=== PATIENT | male | born 1975 | race Caucasian/White ===

== ENCOUNTER 2017-04-16 23:03 | Emergency (ER) | payer OTHER ==
[2017-04-16] MEDS ORDERED: DIPH,PERTUS(ACELL)TETVAC-LF 0.5 ML VIAL IM ONE (23:16)
[2017-04-16] MEDS ORDERED: RX INFO: IV CONTRAST WAS GIVEN 1 EACH MISC MISCELLANE PRN (23:16)
[2017-04-16 23:30] LABS: Basophils # (A) 0.1 k/uL (0-0.2); Basophils % (A) 1 %; CH 31.4; CHCM 36.3; Eosinophils # (A) 0.2 k/uL (0-0.7); Eosinophils % (A) 3 %; HCT 46.7 % (39.0-53.0); HDW 2.73; HGB 16.3 gm/dL (13.0-17.5); Luc # (Auto) 0.16; Luc % (Auto) 2; Lymphocytes # (A) 2.3 k/uL (1.0-4.8); Lymphocytes % (A) 29 %; MCH 30.4 pg (25.0-35.0); MCV 86.9 fL (80.0-100.0); Mean Platelet Volume 7.2; Monocytes # (A) 0.6 k/uL (0-1.0); Monocytes % (A) 7 %; Neutrophils # (A) 4.8 k/uL (1.3-7.7); Neutrophils % (A) 59 %; RBC 5.37 m/uL (4.30-5.90); RDW 14.2 % (11.5-15.5); WBC 8.1 k/uL (3.8-10.6); WBC (Perox) 7.62
[2017-04-16 23:38] LABS: INR 1.1 (<1.2); Partial Thromboplastin Time 23.1 sec (22.0-30.0)
[2017-04-16 23:39] LABS: ALT 57 U/L (21-72); AST 29 U/L (17-59); Alcohol <10 mg/dL; Alkaline Phosphatase 77 U/L (38-126); Amylase 31 U/L (30-110); Anion Gap 10 mmol/L; Blood Urea Nitrogen 12 mg/dL (9-20); Calcium 8.9 mg/dL (8.4-10.2); Carbon Dioxide 27 mmol/L (22-30); Chloride 104 mmol/L (98-107); Glucose 117 mg/dL (74-99); Non-African American GFR(MDRD) >60 (>60 ml/min/1.73 sqM); Sodium 141 mmol/L (137-145); Total Bilirubin 0.7 mg/dL (0.2-1.3); Total Protein 6.7 g/dL (6.3-8.2)
[2017-04-16 23:50] LABS: Creatine Kinase 118 U/L (55-170)
[2017-04-16 23:55] VITALS: PULSE 83
[2017-04-16] MEDS ORDERED: MORPHINE SULFATE 4 MG/ML SYRINGE IVP STA (23:55)
[2017-04-16 23:57] LABS: Glucose,Whole Blood 122 mg/dL (75-99)
[2017-04-17 00:03] LABS: Creatine Kinase MB 0.9 ng/mL (0.0-2.4); Troponin I <0.012 ng/mL (0.000-0.034)
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
[2017-04-17] MEDS ORDERED: MORPHINE SULFATE 4 MG/ML SYRINGE IVP STA (00:37)
[2017-04-17 00:53] LABS: Appearance,Urine Clear (Clear); Bilirubin,Urine Negative (Negative); Glucose,Urine (UA) Negative (Negative); Ketones,Urine Negative (Negative); Leukocyte Esterase,Urine Negative (Negative); Mucus,Urine Rare /hpf; Nitrite,Urine Negative (Negative); PH, Urine 6.5 (5.0-8.0); Particle Count 1232; Protein,Urine Trace (Negative); RBC,Urine 7 /hpf (0-5); UA Billing (MACRO vs. MICRO) MICRO; Urobilinogen,Urine <2.0 mg/dL (<2.0); WBC,Urine 1 /hpf (0-5)
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
[2017-04-17 02:00] VITALS: BP 162/99; RESP 17; TEMP 98.3
== END 2017-04-17 02:00 | disposition home or self-care (01) ==
LOC: EC 23:03
DX: S01.81XA Laceration without foreign body of other part of head, initial encounter (principal); S30.1XXA Contusion of abdominal wall, initial encounter; S70.312A Abrasion, left thigh, initial encounter; R07.89 Other chest pain; Z23 Encounter for immunization; V48.5XXA Car driver injured in noncollision transport accident in traffic accident, initial encounter; Y92.410 Unspecified street and highway as the place of occurrence of the external cause
CPT/HCPCS: 36415; 93005; 86900; 86901; 80053; 82150; 82550; 82553; 83690; 84484; 85025; 85610; 85730; 86850; 81001; 80306; 80320; 71010; 72170; 72125; 70450; 71260; 74177; 90715; 99285; 12013; 90471; 96374; 96376; J2270 ×2; Q9967

== ENCOUNTER → 2022-04-02 | Outpatient (CLI) | payer SELFPAY ==
--- NOTE | 2022-04-06 08:54 | US ---
EXAMINATION TYPE: US gallbladder DATE OF EXAM: 04/02/2022 COMPARISON: CT 2017 CLINICAL HISTORY: R10.11 RUQ PAIN. RUQ pain x 1 month EXAM MEASUREMENTS: Liver Length: 15.3 cm Gallbladder Wall: 0.3 cm CBD: 0.6 cm Right Kidney: 11.4 x 5.4 x 6.1 cm Difficult and limited study due to patient body habitus Pancreas: obscured by overlying midline bowel gas Liver: attenuating, heterogeneous with 2.8cm hypoechoic area adjacent to gallbladder Gallbladder: 2.1cm stone, 2.5cm area of low level echoes, wall borderline thickened Evidence for sonographic Ibanez's sign: no CBD: borderline dilated Right Kidney: wnl Suboptimal evaluation of pancreas on initial images. Visualized liver heterogeneously hyperechoic. Ev aluation for focal masses suboptimal due to the heterogeneity. Gallbladder has intraluminal gallstone along with internal density suggesting small stones and/or sludge. Gallbladder wall thickness upper limits of normal. No adjacent ascites. Sonographic Ibanez sign negative. Common bile duct measures up per limits of normal. No right-sided hydronephrosis. IMPRESSION: Gallstone and gallbladder sludge without convincing secondary also some evidence for acut e cholecystitis. Fatty infiltrative hepatocellular disease redemonstrated. Suboptimal study.
== END | disposition home or self-care (01) ==
LOC: RADUSWWP 08:16
PROVIDERS: ATTEND Family Medicine
DX: K80.20 Calculus of gallbladder without cholecystitis without obstruction (principal); K76.0 Fatty (change of) liver, not elsewhere classified
CPT/HCPCS: 76705